=== PATIENT | female | born 2000 | race American Indian/Alaskan Native ===

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

== ENCOUNTER 2021-01-30 11:59 | Emergency (ER) | payer MEDICAID ==
[2021-01-30 12:21] VITALS: BP 115/71
--- NOTE | 2021-01-30 13:17 | Event Note ---
ED Screening Note ED Screening Note: lower abd pain that began three days ago +yellow vaginal discharge no dysuria no fever no n/v/d +sexually active STD hx: none PMHx none no allergies to meds LNMP: 01/03/2021 This initial assessment/diagnostic orders/clinical plan/treatment(s) is/are subject to change based on patients health status, clinical progression and re- assessment by fellow clinical providers in the ED. Further treatment and workup at subsequent clinical providers discretion. Patient/guardian urged not to elope from the ED as their condition may be serious if not clinically assessed and managed. Initial orders include: UA, urine preg
[2021-01-30 14:13] LABS: Bilirubin,Urine NEG (Negative); Blood,Urine NEG (Negative); Color,Urine Yellow (Yellow); Mucus,Urine 3+ /HPF; Protein,Urine <15 mg/dL mg/dL (Negative); Urobilinogen,Urine < 2.0 mg/dL (<2.0)
[2021-01-30 14:21] LABS: HCG Qualitative,Urine Negative (Negative)
[2021-01-30] MEDS ORDERED: LIDOCAINE-MPF (1%) 10 MG/1 ML VIAL 5 ML INFILTRATI ONE (14:40)
--- NOTE | 2021-01-30 14:45 | Emergency Department Report ---
ED Abdominal Pain HPI - General Chief Complaint: Urogenital-Female Stated Complaint: ABDOMINAL PAIN/VAGINAL DISCHARGE Time Seen by Provider: 01/30/21 13:16 Source: patient Mode of arrival: Ambulatory Limitations: No Limitations - History of Present Illness Initial Comments: 20-year-old -Stateless female presents to the emergency room for acute abd ominal pain with vaginal pain and discharge started yesterday. Patient does admit to unprotected intercourse. Last menstrual period was 3-21. She is 0 para 0. She states that she does have a primary care provider did not have time to make an appointment and needed to be seen immediately. Patient denies any dysuria no hematuria no nausea no vomiting no fever no chills. MD Complaint: abdominal pain Onset/Timin Location: suprapubic Radiation: none Severity scale (0 -10): 7 Quality: stabbing, aching Consistency: intermittent Improves With: nothing Worsens With: nothing Associated Symptoms: denies: nausea, vomiting, diarrhea, fever, constipation, dysuria, hematemesis, hematochezia - Related Data Previous Rx's Medication Instructions Recorded Last Taken Type Naproxen 375 mg PO BID PRN #14 tablet 02/12/19 Unknown Rx Naproxen [Naprosyn] 500 mg PO BID #14 tablet 03/15/19 Unknown Rx Ibuprofen [Motrin 400 MG tab] 400 mg PO Q8H PRN #10 tablet 07/18/19 Unknown Rx Promethazine [Phenergan] 25 mg PO Q6HR PRN #10 tab 07/18/19 Unknown Rx Doxycycline Hyclate [Doxycycline 100 mg PO Q12HR 10 Days #20 tab 01/30/21 Unknown Rx Hyclate TAB] metroNIDAZOLE [metroNIDAZOLE 70 gm VG QHS 7 Days #7 gel.w.appl 01/30/21 Unknown Rx VAGINAL 0.75% gel] Allergies Allergy/AdvReac Type Severity Reaction Status Date / Time No Known Allergies Allergy Verified 01/30/21 12:17 ED Review of Systems ROS: Stated complaint: ABDOMINAL PAIN/VAGINAL DISCHARGE Other details as noted in HPI Comment: All other systems reviewed and negative ED Past Medical Hx - Past Medical History Previous Medical History?: No - Surgical History Past Surgical History?: No - Social History Smoking Status: Current Every Day Smoker Substance Use Type: None - Medications Home Medications: Home Medications Medication Instructions Recorded Confirmed Last Taken Type Naproxen 375 mg PO BID PRN #14 tablet 02/12/19 Unknown Rx Naproxen [Naprosyn] 500 mg PO BID #14 tablet 03/15/19 Unknown Rx Ibuprofen [Motrin 400 MG tab] 400 mg PO Q8H PRN #10 tablet 07/18/19 Unknown Rx Promethazine [Phenergan] 25 mg PO Q6HR PRN #10 tab 07/18/19 Unknown Rx Doxycycline Hyclate [Doxycycline 100 mg PO Q12HR 10 Days #20 tab 01/30/21 Unknown Rx Hyclate TAB] metroNIDAZOLE [metroNIDAZOLE 70 gm VG QHS 7 Days #7 gel.w.appl 01/30/21 Unknown Rx VAGINAL 0.75% gel] ED Physical Exam - General Limitations: No Limitations General appearance: alert - Head Head exam: Present: atraumatic - Eye Eye exam: Present: normal appearance - ENT ENT exam: Present: normal exam, normal external ear exam - Neck Neck exam: Present: normal inspection, full ROM - Respiratory Respiratory exam: Present: normal lung sounds bilaterally. Absent: respiratory distress, chest wall tenderness, accessory muscle use - Cardiovascular Cardiovascular Exam: Present: regular rate - GI/Abdominal GI/Abdominal exam: Present: soft, tenderness (Suprapubic). Absent: distended - External exam: Absent: erythema, swelling, lesions, lacerations, ecchymosis, bleeding Speculum exam: Present: vaginal discharge, cervical discharge (Thick green) Bi-manual exam: Absent: cervical motion tendernes, adnexal tenderness, uterine enlargement, uterine tenderness - Extremities Exam Extremities exam: Present: normal inspection, full ROM - Back Exam Back exam: Present: normal inspection - Neurological Exam Neurological exam: Present: alert, oriented X3, normal gait - Psychiatric Psychiatric exam: Present: normal affect, normal mood - Skin Skin exam: Present: warm, dry, intact, normal color. Absent: rash ED Course Vital Signs 01/30/21 12:20 Temperature 97.8 F Pulse Rate 82 Respiratory 18 Rate Blood Pressure 115/71 O2 Sat by Pulse 99 Oximetry Critical care attestation.: If time is entered above; I have spent that time in minutes in the direct care of this critically ill patient, excluding procedure time. ED Disposition Clinical Impression: UTI (urinary tract infection), Concern about STD in female without diagnosis Disposition: DC-01 TO HOME OR SELFCARE Is pt being admited?: No Does the pt Need Aspirin: No Condition: Stable Instructions: Urinary Tract Infection, Adult, [id number], Safe Sex, Cervicitis, [id number] Additional Instructions: Please complete your antibiotics as prescribed. Is very important that you follow-up at the health department for full STD evaluation. You need to be checked for herpes hepatitis syphilis HIV. Inform your partner that you have been treated. Refrain from intercourse for 2 weeks to allow medication treatment. Be sure to use protection such as condoms to prevent STD transmission. Prescriptions: metroNIDAZOLE [metroNIDAZOLE VAGINAL 0.75% gel] 70 gm VG QHS 7 Days #7 gel.w.appl Doxycycline Hyclate [Doxycycline Hyclate TAB] 100 mg PO Q12HR 10 Days #20 tab Referrals: PRIMARY CARE, [Primary Care Provider] - 3-[address] [facility] [Outside] - 3-5 Days Forms: Work/School Release Form(ED)
== END 2021-01-30 15:04 | disposition home or self-care (01) ==
LOC: ED 11:59
DX: N39.0 Urinary tract infection, site not specified (principal); F17.200 Nicotine dependence, unspecified, uncomplicated; Z20.2 Contact with and (suspected) exposure to infections with a predominantly sexual mode of transmission; Z79.899 Other long term (current) drug therapy
CPT/HCPCS: 81001; 81025; 87086; 87210; 87591; 96372; 99283; J0696

== ENCOUNTER 2021-04-24 19:16 | Emergency (ER) | payer MEDICAID | END 2021-04-25 | disposition left against medical advice (07) | LOC: ED 19:16 | DX: R10.9 Unspecified abdominal pain (principal); Z53.21 Procedure and treatment not carried out due to patient leaving prior to being seen by health care provider ==